=== PATIENT | male | born 1980 | race Caucasian/White ===

== ENCOUNTER → 2017-11-14 | Outpatient (CLI) | payer OTHER ==
[~2017-11-14] MED LIST: BUSP-8 PO; ONDA-63 PO; OXYC-57 PO
--- NOTE | 2017-11-14 12:21 | DIAGNOSTIC IMAGING REPORT ---
LUMBAR SPINE W/O CONTRAST HISTORY: Pain. Neuropathy. DISK HERNIATION,STENOSIS,WILL BE MEDICATED TECHNIQUE: Multiplanar multisequence MRI of the lumbar spine was performed without the use of contrast. COMPARISON: None. FINDINGS: For the purpose of the report the L5-S1 disc space will be located on axial image 27 of 30. Mild degenerative disc change throughout. Moderate degenerative disc changes noted L4-L5 and L5-S1. L1-L2: No significant central canal or neural foraminal narrowing. L2-L3: No significant central canal or neural foraminal narrowing. L3-L4: No significant central canal or neural foraminal narrowing. L4-L5: Right central posterior disc herniation. Significant impact anterior aspect thecal sac. Neuroforamina are patent bilaterally. L5-S1: Broad-based bulging disc. Contact with the S1 nerve roots is noted bilaterally but no significant deformity or displacement of those structures is seen. Neuroforamina are patent bilaterally. Moderate degenerative change posterior facets. IMPRESSION: 1. Right posterior disc herniation L4-L5 having a maximum dimensions of 7 x 10 mm. 2. Posterior bulging disc L4-L5 in contact with but showing no significant deformity or displacement of any significant neural element. The above report was generated using voice recognition software. It may contain grammatical, syntax or spelling errors. Electronically signed by: David Gabriel M.D. 11/14/2017 12:20 PM Dictated Date/Time: 11/14/2017 12:17 PM
== END | disposition home or self-care (01) ==
LOC: C.MRI 11:02
PROVIDERS: ATTEND Orthopaedic Surgery Orthopaedic Surgery of the Spine
DX: M51.26 Other intervertebral disc displacement, lumbar region (principal); M48.061 Spinal stenosis, lumbar region without neurogenic claudication

== ENCOUNTER 2018-04-09 05:42 | Inpatient (IN) | payer BC, OTHER ==
[2018-03-20 08:46] VITALS: BMI 24.0
[2018-03-20 09:27] LABS: BASO % 0.5 %; BASO ABS # 0.03 K/uL (0-0.2); EOS % 2.6 %; EOS ABS # 0.16 K/uL (0-0.5); HEMATOCRIT 41.3 % (42-52); HEMOGLOBIN 14.4 g/dL (14.0-18.0); IG# 0.01 K/uL (0.00-0.02); LYMPH % 27.6 %; LYMPH ABS # 1.71 K/uL (1.2-3.4); MEAN CELL VOLUME 88.8 fL (80-100); MEAN CORPUSCULAR HGB CONC 34.9 g/dl (32-36); MONO % 7.9 %; MONO ABS # 0.49 K/uL (0.11-0.59); NEUT % 61.2 %; PLATELET COUNT 217 K/uL (130-400); RED CELL DISTRIBUTION WIDTH CV 13.3 % (11.5-14.5); RED CELL DISTRIBUTION WIDTH SD 42.9 fL (36.4-46.3)
[2018-03-20 09:38] LABS: PTT PATIENT 26.4 SECONDS (21.0-31.0)
--- NOTE | 2018-03-20 09:40 | DIAGNOSTIC IMAGING REPORT ---
CHEST 2 VIEWS ROUTINE CLINICAL HISTORY: Preoperative chest COMPARISON STUDY: 05/07/2011 FINDINGS: The cardiac and mediastinal contours are normal. There is no evidence of focal pulmonary consolidation. There is no evidence of failure. No pleural effusions are visualized.[ There is a minor vertebral body wedge deformity at the thoracoabdominal junction, likely old. IMPRESSION: No active disease in the chest. Electronically signed by: Duarte Newton M.D. 03/20/2018 9:39 AM Dictated Date/Time: 03/20/2018 9:38 AM
[2018-03-20 10:55] LABS: CALCIUM 8.8 mg/dl (8.5-10.1); CREATININE 0.8 mg/dl (0.60-1.40); POTASSIUM 3.7 mmol/L (3.5-5.1)
--- NOTE | 2018-04-08 18:37 | HISTORY & PHYSICAL EXAMINATION ---
DATE OF ADMISSION: 04/09/2018 He is set up for 2 level posterior lumbar interbody fusion procedure at L4-L5 and L5-S1. HISTORY OF PRESENT ILLNESS: The patient is a pleasant gentleman. I have known him for years. His surgical workup has been ongoing now for about two years in duration, finally gaining approval. He has cauda equina compression, nerve root irritation, degenerative changes, all compatible with his subjectivity of pain. MEDICAL HISTORY: Negative for heart disease, diabetes, thyroid issues, cholesterol. No hypertension. SURGICAL HISTORY: Includes lumbar spine discectomy surgery in 2009. ALLERGIES: Negative. FAMILY HISTORY: Heart disease and diabetes. SOCIAL HISTORY: He is , works, two children. Moderately-active lifestyle. His pain curtails most of his activity. REVIEW OF SYSTEMS: He denies fevers, sweats, chills. Ear, nose and throat negative. No chest pain, palpitations, asthma, wheezing. No nausea, vomiting. No skin rashes. There is mostly numbness and tingling, which is neurological and musculoskeletal back pain. MEDICATIONS: Gabapentin, and Flexeril. PHYSICAL EXAMINATION: VITAL SIGNS: He is 6 foot, 170 pounds. Blood pressure on record 130/80, pulse 80. GENERAL: He is in moderate distress, conversant, slightly depressed. HEENT: Essentially normal. Specifically, Pupils reactive to light. ABDOMEN: Soft, nontender, no referred pain. No adenopathy. CARDIAC: Normal S1, S2. LUNGS: Clear. NEUROLOGIC: He has numbness and tingling in the lower extremities, paresthesias, particularly L5 nerve root. He has loss of flexion and extension. He has pain with percussion of the spine. He has slight gait abnormality, difficulty with upright positioning. X-rays demonstrate 2 level degenerative changes in lumbar spine. MRI scan demonstrates 2 level pathology lumbar spine 4-5, large disc herniation 4-5 and 5-S1. IMPRESSION: Delightful gentleman, 2 level lumbar spine pathology of significance. DISPOSITION: Includes a 2 level PLIF procedure L4-5 and, S1. Instructions precautions provided to the patient.
[~2018-04-09] VITALS: Ht 182.9 cm; Wt 82.3 kg
[2018-04-09] VITALS (8 sets, daily range): BP systolic 118–159; BP diastolic 62–97; PULSE 65–96; TEMP 36.4–37.3; O2SAT 96–99; Ht 182.9 cm; Wt 82.3 kg
[~2018-04-09 05:42] MED LIST changes: -BUSP-8 PO; +CYCL10TA6 PO; +DULO60CA44 PO; +MULT-1027 PO; +NAPR1TAB9 PO; -OXYC-57 PO; +OXYC-609 PO
[2018-04-09] MEDS ORDERED: NSS 1000ML IV SCH (06:00)
[2018-04-09] MEDS ORDERED: ACETAMINOPHEN 500 MG TAB PO SCH (06:00)
[2018-04-09] MEDS ORDERED: LACTATED RINGER'S 1000ML 1,000 ML IV SCH (06:00)
[2018-04-09] MEDS ORDERED: ACETAMINOPHEN 1000 MG/100 ML IV IV SCH (06:00)
[2018-04-09] MEDS ORDERED: CEFAZOLIN 2000MG IV PUSH 15 ML IV SCH ×2 (06:00→16:00)
[2018-04-09] MEDS ORDERED: MIDAZOLAM HCL 1 MG/ML 2ML VIAL ONE (06:41)
[2018-04-09] MEDS ORDERED: FENTANYL CITRATE INJ 50 MCG/1 ML 2 ML VIAL ONE ×4 (06:42→11:25)
[2018-04-09] MEDS ORDERED: PROPOFOL IV EMULSION 10 MG/ML 20 ML VIAL ONE (06:49)
[2018-04-09] MEDS ORDERED: ROCURONIUM BROMIDE 10 MG/ML 5 ML VIAL ONE (06:49)
[2018-04-09] MEDS ORDERED: ONDANSETRON INJ 2 MG/ML 2 ML VIAL ONE (06:49)
[2018-04-09] MEDS ORDERED: LIDOCAINE HCL 2% 2 ML VIAL (20MG/ML) ONE (06:49)
[2018-04-09] MEDS ORDERED: DEXAMETHASONE SOD INJ 4 MG/ML VIAL ONE (06:49)
[2018-04-09] MEDS ORDERED: BUPIVACAINE 0.5 % 5 MG/1 ML MPF 30ML VIAL ONE (06:56)
[2018-04-09] MEDS ORDERED: GELATIN SPONGE SZ 100 ONE ×2 (06:56→09:54)
[2018-04-09] MEDS ORDERED: BACITRACIN 50000 UNIT VIAL ONE (06:56)
[2018-04-09] MEDS ORDERED: VANCOMYCIN HCL 1000MG/20ML VIAL ONE (06:56)
[2018-04-09] MEDS ORDERED: THROMBIN FOR SOLN 20000 UNIT KIT ONE (06:56)
[2018-04-09] MEDS ORDERED: EpINEphrine INJ 1MG/ML AMP 1 MG/ML AMP ONE (06:57)
--- NOTE | 2018-04-09 07:33 | History & Physical Bridge Note ---
H&P Re-Evaluation Bridge Note: I have examined the patient, reviewed the History & Physical and in the interval since the performance of the History & Physical I have noted the following changes of clinical significance: No changes noted
[2018-04-09] MEDS ORDERED: HYDROmorphone INJ 2 MG/ML SYR/VIAL ONE (08:14)
[2018-04-09] MEDS ORDERED: NALOXONE HCL 0.4 MG/1 ML VIAL/CARP IV PRN ×2 (09:00→11:30)
[2018-04-09] MEDS ORDERED: LABETALOL HCL IV 5 MG/ML 20ML IV PRN (09:00)
[2018-04-09] MEDS ORDERED: FLUMAZENIL 0.1 MG/1 ML 10 ML VIAL IV PRN (09:00)
[2018-04-09] MEDS ORDERED: EpHEDrine SULFATE INJ 50 MG/ML AMP IV PRN (09:00)
[2018-04-09] MEDS ORDERED: PROMETHAZINE HCL INJ 12.5 MG in SODIUM CHLORIDE 0.9% 50ML 50 ML IV PRN ×2 (09:00→11:30)
[2018-04-09] MEDS ORDERED: ONDANSETRON INJ 2 MG/ML 2 ML VIAL IV PRN ×2 (09:00→11:30)
[2018-04-09] MEDS ORDERED: ATROPINE SULFATE 0.1 MG/ML 5ML SYR IV PRN (09:00)
[2018-04-09] MEDS ORDERED: HydrALAZINE HCL 20 MG/ML VIAL ONE (10:28)
[2018-04-09] MEDS ORDERED: FLOSEAL HEMOSTATIC MATRIX 10ML TOP ONE (10:54)
--- NOTE | 2018-04-09 10:56 | DIAGNOSTIC IMAGING REPORT ---
SPINE ONE VIEW, ANY LEVEL HISTORY: Fusion. FLUOROSCOPY TIME: 12 seconds. FINDINGS: Intraoperative fluoroscopy was provided for the lumbar laminectomy and fusion. 1 fluoroscopic spot images were obtained. IMPRESSION: Fluoroscopy provided for a lumbar laminectomy and fusion. The above report was generated using voice recognition software. It may contain grammatical, syntax or spelling errors. Electronically signed by: David Gabriel M.D. 04/09/2018 10:55 AM Dictated Date/Time: 04/09/2018 10:54 AM
[2018-04-09] MEDS ORDERED: NEOSTIGMINE METHYLSULFATE 1 MG/ML 10ML VIAL ONE (11:02)
[2018-04-09] MEDS ORDERED: GLYCOPYRROLATE INJ 0.2 MG/ML VIAL ONE (11:02)
--- NOTE | 2018-04-09 11:20 | [facility] Post Operative Brief Note ---
Immediate Operative Summary Operative Date April 09, 2018. Pre-Operative Diagnosis Stenosis and instability Post-Operative Diagnosis Stenosis and instability Procedure(s) Performed L4-S1 Decompression, Posterior Spinal Fusion, Instrumentation, Interbody Fusion With Application of Interbody Cage at L4-L5, L5-S1; Application of Allograft Surgeon Dr. John Godoy Food Service Aide Surgeon(s) Jerome Ace PA-C Estimated Blood Loss 200ml Findings Consistent with Post-Op Diagnosis Specimens None per surgeon Drains None Anesthesia Type General Disposition Accompanied Pt To Recover: no
[2018-04-09] MEDS ORDERED: SODIUM CHLORIDE 0.9% 1000ML 1,000 ML IV SCH (11:24)
[2018-04-09] MEDS ORDERED: METOCLOPRAMIDE HCL INJ 5 MG/ML 2 ML VIAL IV PRN (11:30)
[2018-04-09] MEDS ORDERED: LORAZEPAM INJ 1 MG in SYRINGE 0 ML IV PRN (11:30)
[2018-04-09] MEDS ORDERED: ACETAMINOPHEN 325 MG TAB PO PRN (11:30)
[2018-04-09] MEDS ORDERED: MAGNESIUM HYDROXIDE SUSP 30 ML UDC PO PRN (11:30)
[2018-04-09] MEDS ORDERED: ONDANSETRON 8 MG TAB PO PRN (11:30)
[2018-04-09] MEDS: HYDROmorphone INJ 2 MG/ML SYR/VIAL IV PRN ×4 (11:39→12:10)
[2018-04-09] MEDS ORDERED: HYDROmorphone HCL 0.5MG/ML 50 ML CASSETTE ONE (11:40)
[2018-04-09] MEDS ORDERED: LORAZEPAM 2 MG/ML 1 ML VIAL ONE (11:43)
[2018-04-09] MEDS ORDERED: LORAZEPAM INJ 1 MG in SYRINGE 0.5 ML IV PRN (12:00)
[2018-04-09 12:19] LABS: HEMATOCRIT 38.2 % (42-52); HEMOGLOBIN 13.5 g/dL (14.0-18.0)
--- NOTE | 2018-04-09 12:20 | Anesthesiology Progress Note ---
Anesthesia Post Op Note Date & Time April 09, 2018 at 12:20 Vital Signs Pain Intensity: 7 Vital Signs Past 12 Hours Date Time Temp Pulse Resp B/P (MAP) Pulse Ox O2 Delivery O2 Flow Rate FiO2 04/09/18 12:10 84 19 131/54 98 Oxymask 4 04/09/18 12:00 85 21 141/69 99 Oxymask 4 04/09/18 11:50 103 23 161/98 99 Oxymask 10 04/09/18 11:40 101 22 161/70 99 Oxymask 10 04/09/18 11:33 36.9 113 23 150/117 99 Oxymask 10 04/09/18 06:00 36.5 65 18 132/83 96 Room Air Notes Mental Status: alert / awake / arousable, participated in evaluation Pt Amnestic to Procedure: Yes Nausea / Vomiting: adequately controlled Pain: adequately controlled Airway Patency, RR, SpO2: stable & adequate BP & HR: stable & adequate Hydration State: stable & adequate Anesthetic Complications: no major complications apparent
--- NOTE | 2018-04-09 13:02 | OPERATIVE REPORT ---
DATE OF OPERATION: 04/09/2018 PREOPERATIVE DIAGNOSES: Two-level lumbar spine disease L4-5, L5-S1, combination of disc herniation, stenosis, degenerative changes, instability. POSTOPERATIVE DIAGNOSES: Same. PROCEDURE: . 1. Lumbar spine laminectomy L4-L5, L5-S1, foraminotomy, partial facetectomy. 2. Complete discectomy at L4-L5 and L5-S1. 3. Pedicle screw instrumentation, L4, L5 and S1. 4. Posterior lateral fusion, L4, L5, S1 and interbody fusions L4-L5 and L5-S1. SURGEON: John Godoy DO MEDICAL I D SALES: Jerome Ace PA-C. COMPLICATIONS: There were no complications. BLOOD LOSS: Controlled at 200 mL. DESCRIPTION OF PROCEDURE: The patient was taken to the operating room and general intubated anesthetic provided to patient, placed prone, shaved, scrubbed, prepped and draped sterile. We made a skin incision, fascial incision, put in a deep self-retaining retractor, I could get lateral to the facet joints from L4, L5 and S1. We then meticulously decompressed the canal. He had old surgery. There was scar tissue formation. We had to really decompress each and every nerve root which would be L4, L5 and S1 bilaterally. We then instrumented the spine, safely getting pedicle screws into L4, L5 and S1 bilaterally. We then were able to get interbody fusions done. We did a complete discectomy at L4-L5, complete discectomy at L5-S1. We packed the interspace with autograft. We put an interbody device from the [employer]. This was approximately 9 mm in height, 22 mm in length. This placed a nice anterior aspect of the disc interspace. We then bone grafted out the transverse processes. Prior to all this, we had irrigated with approximately 800 mL of fluid. We placed some vancomycin powder over the dural structures. We locked down the construct. We closed over Hemovac drain with 1 Vicryl, 2-0 and staple gun. Sterile dressings applied. The patient returned to recovery room satisfactory and stable. Again, no complications. Sponge and needle count correct. No complications. I attest to the content of the Intraoperative Record and any orders documented therein. Any exception s are noted below.
[2018-04-09] MEDS: SODIUM CHLORIDE 0.9% 1000ML 1,000 ML IV SCH (14:28)
[2018-04-09] MEDS: CEFAZOLIN IV 2,000 MG in SYRINGE 0 ML IV SCH ×2 (16:12→23:09)
[2018-04-09] MEDS: KETOROLAC TROMETHAMINE 30 MG/ML VIAL IV SCH ×2 (17:54→23:09)
[2018-04-09] MEDS: HYDROmorphone HCL 0.5MG/ML 50 ML CASSETTE IV PRN (18:59)
[2018-04-09] MEDS: DEXAMETHASONE INJ 8 MG in SYRINGE 0 ML IV SCH (19:29)
[2018-04-09] MEDS: DULOXETINE HCL 60 MG CAP PO SCH (20:33)
--- NOTE | 2018-04-09 21:50 | GENITOURINARY CONSULTATION ---
DATE OF CONSULTATION: 04/09/2018 REASON FOR THE CONSULT: Difficult Jose placement earlier in the day. HISTORY OF PRESENTATION: The patient is a 37-year-old male with no previous urologic history including no difficulty voiding. No hematuria, no knowledge of any meatal stenosis or urethral stricture who has no nocturia and no other urologic history. He was here for back surgery this morning and the back surgeons had difficulty placing a catheter. They consulted Dr. Arredondo who did place a coude catheter. There was some hematuria during the procedure and postoperatively, which seems to be clearing at this time and Dr. Arredondo recommended that the catheter be left in for 48 hours. The patient again has back pain and had back surgery today. PAST SURGICAL HISTORY: Significant for diskectomy in 2009. MEDICAL HISTORY: Negative for heart disease, diabetes, or hypertension. SOCIAL HISTORY: The patient is and has 2 children. MEDICATIONS: Include gabapentin and Flexeril. REVIEW OF SYSTEMS: Please refer to the history of review of systems. PHYSICAL EXAMINATION: The patient is lying in bed. We did not do a rectal or exam at this time. Extremities are unremarkable. HEENT is unremarkable. He is alert and oriented without any focal sensory deficits. No respiratory distress, no pedal edema. Abdomen is soft. A Jose catheter in place draining clear urine. ASSESSMENT: Difficult Jose apparently may have been some meatal stenosis but not clear. We will leave the catheter in. The patient's catheter may be removed after 48 hours. If he has great difficulty, it could be removed sooner, but would advise 48 hours to let the swelling come down, he may have difficulty voiding subsequent to this. We would consider having him follow up if he has any voiding difficulty subsequent to this, including decreased force of stream. No family history of prostate cancer. No reason to discuss any other workup at this time. It might be smart to have the patient followup with urology just to make sure we get a Uroflow assessment for infection and make sure that he understands what kind of things we will be looking for in the future, where he to have urinary difficulties. Thank you very much for allowing us to see this patient. ASHER
[2018-04-10] MEDS: DEXAMETHASONE INJ 8 MG in SYRINGE 0 ML IV SCH ×3 (02:19→19:07)
[2018-04-10] MEDS: LORAZEPAM 1 MG TAB PO PRN ×3 (02:19→20:51)
[2018-04-10] MEDS: SODIUM CHLORIDE 0.9% 1000ML 1,000 ML IV SCH (02:20)
[2018-04-10 03:55] VITALS: BP 137/79; PULSE 70; TEMP 36.6; O2SAT 98
[2018-04-10] MEDS: KETOROLAC TROMETHAMINE 30 MG/ML VIAL IV SCH ×3 (05:20→17:58)
[2018-04-10] MEDS ORDERED: BISACODYL 10 MG SUPP PR PRN (06:00)
[2018-04-10] MEDS ORDERED: BISACODYL 5 MG TABEC PO PRN (06:00)
[2018-04-10] MEDS: HYDROmorphone HCL 0.5MG/ML 50 ML CASSETTE IV PRN (06:54)
[2018-04-10 06:59] VITALS: BP 132/78; PULSE 107; TEMP 37.1; O2SAT 99
--- NOTE | 2018-04-10 07:48 | Anesthesiology Progress Note ---
Anesthesia Post Op Note Date & Time April 10, 2018 at 07:48 Vital Signs Pain Intensity: 5.0 Vital Signs Past 12 Hours Date Time Temp Pulse Resp B/P (MAP) Pulse Ox O2 Delivery O2 Flow Rate FiO2 04/10/18 06:59 37.1 107 20 132/78 (96) 99 Room Air 04/10/18 03:55 36.6 70 18 137/79 (98) 98 Room Air 04/09/18 23:05 37.3 70 16 146/79 (101) 98 Room Air Notes Mental Status: alert / awake / arousable, participated in evaluation Pt Amnestic to Procedure: Yes Nausea / Vomiting: adequately controlled Pain: adequately controlled Airway Patency, RR, SpO2: stable & adequate BP & HR: stable & adequate Hydration State: stable & adequate Anesthetic Complications: no major complications apparent
[2018-04-10] MEDS ORDERED: DC PCA SCH (08:00)
[2018-04-10] MEDS ORDERED: OXYCODONE/ACETAMINOPHEN 5-325 TAB PO PRN (08:00)
[2018-04-10] MEDS ORDERED: HYDROmorphone INJ 0.5 MG/0.5 ML SYR IV PRN ×2 (08:00)
[2018-04-10] MEDS: CEFAZOLIN IV 2,000 MG in SYRINGE 0 ML IV SCH (08:57)
[2018-04-10] MEDS: POLYETHYLENE (MIRALAX) 17 GM PACK PO SCH (08:57)
[2018-04-10] MEDS: MULTIVITAMIN TAB PO SCH (08:58)
--- NOTE | 2018-04-10 09:09 | Progress Note ---
Progress Note Date of Service April 09, 2018. Progress Note Intraoperative consult for difficult naranjo placement. Attempt to place 16, 14, and 12 Fr catheter placed. Catheter necessary for procedure. Patient was prepped and draped in standard sterile fashion. Consent for catheter was take as an integral part of the total procedure. Patient was fully anesthetized and sedated with general endotracheal intubation. The 12 Fr catheter was removed after the balloon was lowered. A 18 Fr coude was attempted to be placed. The patient was found to have significant stenosis of the meatus which hindered placement. Passive dilation was completed with the catheter. The catheter was advanced to the bulbar urethra and with minimal manipulation, the catheter was able to be advanced and clear urine received. The balloon was elevated and the catheter seated. The area was cleaned. The naranjo was set to gravity drainage to a urometer for measuring of output. The patient tolerated this difficult catheter placement well without complications. His care was transferred to the attending surgeon to complete their operative procedure. Plan to maintain catheter for approx 48 hours and intervene if any further issues. Monitor for hematuria or bleeding at meatus. Patient had stenosis of meatus which made catheter placement difficult.
[2018-04-10 10:40] VITALS: BP 125/75; PULSE 71; TEMP 36.6; O2SAT 100
[2018-04-10] MEDS: OXYCODONE/ACETAMINOPHEN 5-325 TAB PO PRN ×4 (10:46→23:40)
[2018-04-10] MEDS ORDERED: NURSING VERBAL MED ORDER ONE ×2 (12:30→23:45)
[2018-04-10 15:14] VITALS: BP 132/74; PULSE 71; TEMP 36.9; O2SAT 98
--- NOTE | 2018-04-10 19:10 | Progress Note ---
Subjective Date of Service: April 10, 2018. Subjective Pt evaluation today including: conversation w/ patient, conversation w/ family , physical exam, chart review, lab review, review of inpatient medication list Pain: Discomfort with naranjo PO Intake: Ryan PO Voiding: naranjo catheter in place 37 yo male s/p difficult naranjo placement due to apparent meatal stenosis in OR. Intraop consult and events noted. Patient in bed, family in room. He c/o bother at the naranjo site, little OOB yet, ryan PO, some bleeding around naranjo. He denies previous LUTS, UTI, trauma or surgery. Review of Systems Constitutional: No fever, No chills ENT: No hearing loss Respiratory: No sputum Cardiac: No chest pain Abdomen: No nausea, No vomiting Male : + see HPI Neurologic: No memory loss Psychiatric: No anxiety Endo: No excessive thirst Skin: No new/changing skin lesions Objective Vital Signs Date Time Temp Pulse Resp B/P (MAP) Pulse Ox O2 Delivery O2 Flow Rate FiO2 04/10/18 16:15 Room Air 04/10/18 15:14 36.9 71 18 132/74 (93) 98 Room Air 04/10/18 10:40 36.6 71 19 125/75 (92) 100 Room Air 04/10/18 07:55 Room Air 04/10/18 06:59 37.1 107 20 132/78 (96) 99 Room Air 04/10/18 03:55 36.6 70 18 137/79 (98) 98 Room Air 04/09/18 23:05 37.3 70 16 146/79 (101) 98 Room Air 04/09/18 19:31 36.7 82 18 118/62 (80) 97 Room Air 04/09/18 19:30 Room Air Physical Exam General Appearance: WD/WN, no apparent distress Eyes: normal inspection ENT: normal ENT inspection, hearing grossly normal Neck: supple, no adenopathy Respiratory/Chest: no respiratory distress, no accessory muscle use Cardiovascular: no JVD Abdomen: non tender, soft Extremities: non-tender Neurologic/Psychiatric: alert, oriented x 3 Skin: normal color Assessment and Plan A/P 37 yo male s/p difficult naranjo, meatal stenosis. Trial of void tomorrow as noted. Will arrange for outpatient follow-up with our service to check on voiding. Possible etiologies of meatal stenosis / scarring and risk of recurrence and voiding issues is discussed. Patient and family vocalize good understanding of the treatment plan.
[2018-04-10] MEDS: DULOXETINE HCL 60 MG CAP PO SCH (20:51)
[2018-04-10 22:42] VITALS: BP 133/80; PULSE 96; TEMP 36.8; O2SAT 98
[2018-04-10] MEDS ORDERED: SODIUM CHLORIDE 0.9% 1000ML 1,000 ML IV PRN ×2 (23:45)
[2018-04-11] MEDS: DEXAMETHASONE INJ 8 MG in SYRINGE 0 ML IV SCH ×2 (02:47→10:44)
[2018-04-11] MEDS: LORAZEPAM 1 MG TAB PO PRN ×2 (04:33→10:47)
[2018-04-11] MEDS: OXYCODONE/ACETAMINOPHEN 5-325 TAB PO PRN ×3 (04:34→12:27)
[2018-04-11] MEDS ORDERED: OXYC-106 PO (07:33)
[2018-04-11] MEDS ORDERED: DIAZ-165 PO (07:34)
[2018-04-11] MEDS ORDERED: PRED20TA2 PO (07:36)
--- NOTE | 2018-04-11 07:39 | Discharge Instructions ---
Discharge Instructions Date of Service April 11, 2018. Admission Reason for Admission: Lumbar Disc Degeneration, Lumbar Stenosis Discharge Discharge Diagnosis / Problem: same Discharge Goals Goal(s): Improve function Activity Recommendations Activity Limitations: as noted below Lifting Limitations: until after follow-up appointment Exercise/Sports Limitations: until after follow-up appointment Shower/Bathe: keep incision dry Driving or Machine Use: HOME, REST, RECOVER, USE WALKER . Instructions / Follow-Up Instructions / Follow-Up MEDICATIONS: Please take your prescriptions as instructed at your pre-op appointment. SPECIAL CARE: The following information is intended to answer some of the common questions and concerns regarding your surgery. Each patient is an individual and receives individual counselling throughout the course of treatment, from diagnosis to surgery all the way through recovery. What follows is not an exhaustive list, but should be a useful guide to some of the common questions and concerns patients have regarding their surgeries. These are not provided to keep you from calling us; rather, they give you something accurate and concrete to reference as you recover from your procedure. If you need us, we are available to you. As always, if you are not sure about something, call us at [phone]. MEDICAL EMERGENCIES: For these conditions, call 911 or go to your local hospital-based Emergency Department - not [facility] or equivalent. * Paralysis * Severe chest pain or difficulty breathing * Swelling or redness of either leg Spine procedures can be rather complex and though complications are rare, they do occur. In such cases, effective advice regarding emergency situations cannot always be addressed over the telephone. You may be referred to the emergency department for more effective management of your problem. Activity Limitations: It is important to give your body time to heal, so please limit your activities : * In general, don't do anything that moves your spine too much. You should avoid contact sports, twisting or heavy lifting while you recover. * 5-10 pounds is all you should attempt to lift. * You should not plan on driving for approximately 3 weeks and you should avoid traveling more than 30-45 minutes at a time. Longer trips should be broken down with walking breaks spaced appropriately. * Physical therapy is not usually required. * Walking and good posture practices will help you recover and regain your function. * Avoid straining or sudden changes in position. * In general, the goal is to take it easy and recover. Don't cause any new problems. Just relax. Showers: * Do not take a bath, use a Jacuzzi or hot tub or otherwise submerge your incision. * It is usually safe to take a shower 4-5 days after your surgery. * Your incision does not require any special creams or ointments. * Simply clean it with soap and water, dry and re-dress with a clean bandage afterwards. Incision: * Keep incision clean, dry and protected until your first follow-up appointment. * Some amount of drainage and redness is normal. Any drainage should be fairly clear and not have a foul odor. * If you feel anything is wrong or you have excessive drainage, please call us. * Your stitches and pretty will be removed 10-14 days after your surgery. At the time of your first post-op visit. * Neck surgeries are typically closed with a suture underneath the skin. The steri-strips over the incision should be maintained until we see you in the office. Bracing: * You may be provided with a back or neck brace to encourage good posture and prevent injury. It will remind you not to do too much as you heal and will alert others to the fact that you have had a surgery. * Back braces may be removed for showers and when you are resting at home. They must be worn when you are walking around for any period of time or for travel. * For neck surgery, you will likely be provided with two cervical collars. The soft collar ([place] or foam rubber) is worn most commonly throughout the day and while sleeping. The plastic collar (provided at the hospital) is for showering/bathing. * Except while eating, collars should remain in place. More specifically, bracing is provided for a purpose and should be worn. * Please obtain your brace or collars prior to your operation and bring them to the hospital with you on the day of surgery. * You should also bring your collars to your post-op appointment with Dr. Godoy. You should always take good care of your body and practice healthy habits, especially following surgery. You should: * Follow your doctor's treatment plan * Sit and stand properly with good posture (ears over shoulders, shoulders over hips) Don't slouch * Learn to lift correctly * Exercise regularly (low-impact aerobic exercise is especially good, but check with your doctor first) * Generally, be up and walking for 5-10 minutes at a time at least 3-4 times per day from the day you get home * Increasing walking to tolerance until you can walk for 20-30 minutes at a time * Attain and maintain a healthy body weight * Eat healthy foods ( a well-balanced, low-fat diet rich in fruits and vegetables) and get enough calcium * Avoid excessive use of alcohol When to call our office - If you notice any of the following: * Increased pain not relieve by pain medicine * Fevers greater then 100 degrees F, chills or flu symptoms * Increased redness around incision * Drainage from the incision that is not clear * Any foul smelling drainage * Swelling or fluid collection beneath the skin Miscellaneous: * In the hospital, you may be given a walker or cane for support while walking. These are temporary needs and are intended to prevent injuries due to falls. You may discontinue them when you feel strong and steady enough on your feet. * Sleep in a comfortable position. We find that many patients find a lounge chair or recliner with several pillows to be beneficial in the early post-operative period. * The support stockings should be used for 7-10 days and may be discontinued when you are back to walking more and conducting usual household activities. No problem is insignificant. We are here to help you and get you well. Contact us at [phone]. Definitions: Foraminotomy: If part of the disc or a bone spur (osteophyte) is pressing on a nerve as it leaves the vertebra (through an exit called the foramen), a foraminotomy may be done. Otomy means "to make an opening." A foraminotomy is making the opening of the foramen larger, so the nerve can exit without being compressed. Laminotomy: Similar to the foraminotomy, a laminotomy makes a larger opening, this time in your bony plate protecting your spinal canal and spinal cord (the lamina). The lamina may be pressing on your nerve, so the surgeon may make more room for the nerves using a laminotomy. Laminectomy: Sometimes, a laminotomy is not sufficient. The surgeon may need to remove all or part of the lamina. This procedure is called a laminectomy. This can often be done at many levels without any harmful effects. Current Hospital Diet Patient's current hospital diet: Regular Diet Discharge Diet Recommended Diet: Regular Diet Procedures Procedures Performed: L4-S1 Decompression, Posterior Spinal Fusion, Instrumentation, Interbody Fusion With Application of Interbody Cage at L4-L5, L5-S1; Application of Allograft Pending Studies Studies pending at discharge: no Medical Emergencies . Who to Call and When: Medical Emergencies: If at any time you feel your situation is an emergency, please call 911 immediately. . Non-Emergent Contact Non-Emergency issues call your: Primary Care Provider . "Provider Documentation" section prepared by John Godoy. .
[2018-04-11 07:43] VITALS: BP 151/81; PULSE 84; TEMP 36.4; O2SAT 97
[2018-04-11] MEDS: MULTIVITAMIN TAB PO SCH (08:14)
[2018-04-11] MEDS: POLYETHYLENE (MIRALAX) 17 GM PACK PO SCH (08:16)
--- NOTE | 2018-04-11 10:12 | Progress Note ---
Subjective Date of Service: April 11, 2018. Subjective Pt evaluation today including: conversation w/ patient, physical exam, chart review, lab review, review of inpatient medication list Pain: pain improved after naranjo removal PO Intake: Bucky PO 37 yo male s/p difficult naranjo placement, meatal stenosis. Naranjo out this AM, improved penile discomfort. He denies chronic voiding symptoms, no current bleeding. Pending more activity this AM. He has not voided yet, no desire to void as of yet since naranjo out. Review of Systems Constitutional: No fever, No chills Eyes: No worsening of vision ENT: No unusual epistaxis Respiratory: No shortness of breath Cardiac: No chest pain Abdomen: No nausea, No vomiting Male : + see HPI Neurologic: No memory loss Psychiatric: No depression symptoms Skin: No rash, No itch Objective Vital Signs Date Time Temp Pulse Resp B/P (MAP) Pulse Ox O2 Delivery O2 Flow Rate FiO2 04/11/18 07:43 36.4 84 16 151/81 (104) 97 Room Air 04/11/18 00:15 Room Air 04/10/18 22:42 36.8 96 20 133/80 (97) 98 Room Air 04/10/18 16:15 Room Air 04/10/18 15:14 36.9 71 18 132/74 (93) 98 Room Air 04/10/18 10:40 36.6 71 19 125/75 (92) 100 Room Air Physical Exam General Appearance: WD/WN, no apparent distress ENT: hearing grossly normal Neck: supple, no adenopathy Respiratory/Chest: no respiratory distress, no accessory muscle use Cardiovascular: no JVD Abdomen: non tender, soft Neurologic/Psychiatric: alert Skin: normal color Assessment and Plan A/P 37 yo male s/p difficult naranjo, meatal stenosis. Monitor voiding, ensure he is able to void prior to DC home. Will arrange for outpatient f/u of bladder emptying. Contact info provided. Thank you for allowing us to participate in this patient's care. Please recall our service PRN any new questions or concerns.
[2018-04-11 10:51] VITALS: BP 151/81; PULSE 84; TEMP 36.4; O2SAT 97
--- NOTE | 2018-04-11 14:16 | DISCHARGE SUMMARY ---
SUBJECTIVE: He is alert, oriented. No chest pain, shortness of breath. Does have some lower extremity difficulty, spasticity roughly in the 3, 4, 5 nerve root vicinity. He has no weakness, but he does have numbness, it is more of a cramping pain. OBJECTIVE: VITAL SIGNS: Vital signs stable, alert, oriented. Pulse rate 80 beats per minute, afebrile. MUSCULOSKELETAL: No pain with straight leg raising or tension sign to the lower extremities bilaterally. No upper motor neuron issues. ASSESSMENT: Status post lumbar spine, major reconstructive surgery. PLAN: We will try to get him home today. He has prescriptions on his chart. He has instructions and precautions. He has a followup appointment. He has a walker at home and we will see him back in the office in approximately 10 days.
== END 2018-04-11 12:46 | disposition home or self-care (01) | DRG 454 ==
LOC: C.ACU 05:42 → C.3E 06:30 → ENRESERV 12:16
PROVIDERS: ADMIT Orthopaedic Surgery Orthopaedic Surgery of the Spine; ATTEND Orthopaedic Surgery Orthopaedic Surgery of the Spine
PROC: 0ST40ZZ Resection of Lumbosacral Disc, Open Approach (ICD-10-PCS; principal; 2018-04-09 07:30)
PROC: 0SG00AJ Fusion of Lumbar Vertebral Joint with Interbody Fusion Device, Posterior Approach, Anterior Column, Open Approach (ICD-10-PCS; principal; 2018-04-09 07:30)
PROC: 0SG30AJ Fusion of Lumbosacral Joint with Interbody Fusion Device, Posterior Approach, Anterior Column, Open Approach (ICD-10-PCS; principal; 2018-04-09 07:30)
PROC: 0SG3071 Fusion of Lumbosacral Joint with Autologous Tissue Substitute, Posterior Approach, Posterior Column, Open Approach (ICD-10-PCS; principal; 2018-04-09 07:30)
PROC: 0SG0071 Fusion of Lumbar Vertebral Joint with Autologous Tissue Substitute, Posterior Approach, Posterior Column, Open Approach (ICD-10-PCS; principal; 2018-04-09 07:30)
PROC: 0ST20ZZ Resection of Lumbar Vertebral Disc, Open Approach (ICD-10-PCS; principal; 2018-04-09 07:30)
DX: M48.07 Spinal stenosis, lumbosacral region (principal); G83.4 Cauda equina syndrome; M51.27 Other intervertebral disc displacement, lumbosacral region; N35.9 Urethral stricture, unspecified

== ENCOUNTER 2018-04-20 09:41 | Inpatient (IN) | payer BC, OTHER ==
--- NOTE | 2018-04-17 15:09 | HISTORY & PHYSICAL EXAMINATION ---
DATE OF ADMISSION: 04/09/2018 ADDENDUM CHIEF COMPLAINT: Back and lower extremity difficulty. Paresthesias, numbness, tingling to the right lower extremity. HISTORY OF PRESENT ILLNESS: Que is delightful. We did fairly elaborate surgery on him 10 days ago. He has developed some right lower extremity difficulty, paresthesias, numbness, tingling, weakness. The pain has become out of control. We have imaged him. He has a mal-placed screw at the L5 vertebra which in my opinion is into his psoas musculature injuring the nerve root. PHYSICAL EXAMINATION: VITAL SIGNS: Blood pressure 130/80, pulse 80, respiration rate 16. HEENT: Normal. SKIN: Wound clean and dry. No drainage, no signs of infection. IMAGING: Images reviewed. IMPRESSION: Mal-placement of a screw in lumbar spine, possible fall leading to mal-placement of the screw, but I think on looking at the radiographs, it needs to be redirected. PLAN: Under general anesthetic, we will re-direct the screw at L5 lumbar spine, possibly leaving all the other implants in place. At the time of this dictation, I believe I will hold off on reimplantation of the screw. Note: He is doing well from the back pain perspective and has more stability.
[2018-04-20] VITALS (8 sets, daily range): BP systolic 118–157; BP diastolic 67–98; PULSE 68–90; TEMP 36.4–37; O2SAT 95–100; Ht 182.9 cm; Wt 79.5 kg
[~2018-04-20] VITALS: Ht 182.9 cm; Wt 79.5 kg
[~2018-04-20 09:41] MED LIST changes: +CEFAZOLIN 2000MG IV PUSH 15 ML IV SCH; +DIAZ-165 PO; +LACTATED RINGER'S 1000ML 1,000 ML IV SCH; +NSS 1000ML IV SCH; +OXYC-106 PO; +PRED20TA2 PO
[2018-04-20] MEDS ORDERED: HYDR2TAB48 PO (10:12)
[2018-04-20] MEDS ORDERED: HYDROmorphone INJ 0.5 MG/0.5 ML SYR IV PRN (12:00)
[2018-04-20] MEDS ORDERED: EpHEDrine SULFATE INJ 50 MG/ML AMP IV PRN (12:00)
[2018-04-20] MEDS ORDERED: NALOXONE HCL 0.4 MG/1 ML VIAL/CARP IV PRN ×2 (12:00→16:15)
[2018-04-20] MEDS ORDERED: ATROPINE SULFATE 0.1 MG/ML 5ML SYR IV PRN (12:00)
[2018-04-20] MEDS ORDERED: FLUMAZENIL 0.1 MG/1 ML 10 ML VIAL IV PRN (12:00)
[2018-04-20] MEDS ORDERED: PROMETHAZINE HCL INJ 12.5 MG in SODIUM CHLORIDE 0.9% 50ML 50 ML IV PRN ×2 (12:00→16:15)
[2018-04-20] MEDS ORDERED: LABETALOL HCL IV 5 MG/ML 20ML IV PRN (12:00)
[2018-04-20] MEDS ORDERED: ONDANSETRON INJ 2 MG/ML 2 ML VIAL IV PRN ×2 (12:00→16:15)
[2018-04-20] MEDS ORDERED: NURSING VERBAL MED ORDER ONE (12:15)
[2018-04-20] MEDS ORDERED: DIAZEPAM 5MG TAB ONE (12:19)
[2018-04-20] MEDS ORDERED: THROMBIN FOR SOLN 20000 UNIT KIT ONE (13:57)
[2018-04-20] MEDS ORDERED: GELATIN SPONGE SZ 100 ONE ×2 (13:57→15:39)
[2018-04-20] MEDS ORDERED: BACITRACIN 50000 UNIT VIAL ONE (13:57)
[2018-04-20] MEDS ORDERED: VANCOMYCIN HCL 1000MG/20ML VIAL ONE (13:57)
[2018-04-20] MEDS ORDERED: EpINEphrine INJ 1MG/ML AMP 1 MG/ML AMP ONE (13:58)
[2018-04-20] MEDS ORDERED: BUPIVACAINE 0.5 % 5 MG/1 ML PF 10ML VIAL ONE ×2 (13:58→14:21)
[2018-04-20] MEDS ORDERED: ONDANSETRON INJ 2 MG/ML 2 ML VIAL ONE (14:10)
[2018-04-20] MEDS ORDERED: LIDOCAINE HCL 2% 2 ML VIAL (20MG/ML) ONE (14:10)
[2018-04-20] MEDS ORDERED: DEXAMETHASONE SOD INJ 4 MG/ML VIAL ONE (14:10)
[2018-04-20] MEDS ORDERED: ROCURONIUM BROMIDE 10 MG/ML 5 ML VIAL ONE ×2 (14:10→15:00)
[2018-04-20] MEDS ORDERED: MIDAZOLAM HCL 1 MG/ML 2ML VIAL ONE (14:10)
[2018-04-20] MEDS ORDERED: NEOSTIGMINE METHYLSULFATE 5 MG/5 ML SYR ONE (14:10)
[2018-04-20] MEDS ORDERED: GLYCOPYRROLATE INJ 0.2 MG/ML VIAL ONE (14:10)
[2018-04-20] MEDS ORDERED: PROPOFOL IV EMULSION 10 MG/ML 20 ML VIAL ONE ×2 (14:10→15:45)
[2018-04-20] MEDS ORDERED: FENTANYL CITRATE INJ 50 MCG/1 ML 2 ML VIAL ONE (14:11)
[2018-04-20] MEDS ORDERED: HYDROmorphone INJ 2 MG/ML SYR/VIAL ONE (15:33)
--- NOTE | 2018-04-20 15:49 | DIAGNOSTIC IMAGING REPORT ---
SPINE ONE VIEW, ANY LEVEL CLINICAL HISTORY: Hardware removal. Revision. COMPARISON STUDY: Lumbar spine radiograph April 17, 2018. FLUOROSCOPY TIME: 6.4 seconds. FINDINGS: Single lateral fluoroscopic image demonstrates an L4-L5 and L5-S1 discectomies with interbody spacer placement. There are pedicle screws at the L4, L5 and S1 levels. IMPRESSION: Fluoroscopic images demonstrating L4-L5 and L5-S1 discectomies and pedicle screw fusion. Electronically signed by: Benito Jurado M.D. 04/20/2018 3:48 PM Dictated Date/Time: 04/20/2018 3:47 PM
[2018-04-20] MEDS ORDERED: SODIUM CHLORIDE 0.9% 1000ML 1,000 ML IV SCH (16:08)
--- NOTE | 2018-04-20 16:11 | [facility] Post Operative Brief Note ---
Immediate Operative Summary Operative Date April 20, 2018. Pre-Operative Diagnosis painful spinal implants Post-Operative Diagnosis painful spinal implants Procedure(s) Performed removal and adjustment spinal implants; bone graft and fusion Surgeon samantha Shooter'S Helper Surgeon(s) ora Estimated Blood Loss 150 Findings Consistent with Post-Op Diagnosis Specimens pedicle screws Drains None Anesthesia Type General Disposition Accompanied Pt To Recover: yes Overlapping Procedure I was immediately available: during the entire case
[2018-04-20] MEDS ORDERED: MAGNESIUM HYDROXIDE SUSP 30 ML UDC PO PRN (16:15)
[2018-04-20] MEDS ORDERED: ACETAMINOPHEN 325 MG TAB PO PRN (16:15)
[2018-04-20] MEDS ORDERED: METOCLOPRAMIDE HCL INJ 5 MG/ML 2 ML VIAL IV PRN (16:15)
[2018-04-20] MEDS ORDERED: LORAZEPAM INJ 1 MG in SYRINGE 0 ML IV PRN (16:15)
[2018-04-20] MEDS ORDERED: ONDANSETRON 8 MG TAB PO PRN (16:15)
[2018-04-20] MEDS ORDERED: CEFAZOLIN IV 1,000 MG in DEXTROSE 5% 50ML 50 ML IV SCH (16:15)
[2018-04-20] MEDS ORDERED: DC PCA PRN (16:15)
[2018-04-20] MEDS ORDERED: HYDROmorphone HCL 0.5MG/ML 50 ML CASSETTE ONE (16:23)
--- NOTE | 2018-04-20 17:00 | Anesthesiology Progress Note ---
Anesthesia Post Op Note Date & Time April 20, 2018 at 17:00 Vital Signs Pain Intensity: 5 Vital Signs Past 12 Hours Date Time Temp Pulse Resp B/P (MAP) Pulse Ox O2 Delivery O2 Flow Rate FiO2 04/20/18 16:55 36.4 85 16 155/87 100 Nasal Cannula 3 04/20/18 16:45 75 16 156/85 100 Nasal Cannula 3 04/20/18 16:35 76 16 149/87 99 Nasal Cannula 3 04/20/18 16:25 74 16 151/93 100 Oxymask 5 04/20/18 16:17 36.7 82 16 144/89 100 Oxymask 5 04/20/18 10:15 37 90 20 157/98 98 Room Air Notes Mental Status: alert / awake / arousable, participated in evaluation Pt Amnestic to Procedure: Yes Nausea / Vomiting: adequately controlled Pain: adequately controlled Airway Patency, RR, SpO2: stable & adequate BP & HR: stable & adequate Hydration State: stable & adequate Anesthetic Complications: no major complications apparent
[2018-04-20 18:15] LABS: HEMATOCRIT 31.9 % (42-52); HEMOGLOBIN 11.1 g/dL (14.0-18.0)
--- NOTE | 2018-04-20 19:37 | OPERATIVE REPORT ---
DATE OF OPERATION: 04/20/2018 PREOPERATIVE DIAGNOSIS: Mal-placed hardware and hardware cut out, lumbar spine L5 and S1. POSTOPERATIVE DIAGNOSIS: Same. PROCEDURES: Included 1. Decompression laminectomy of the L5 and S1 nerve roots, foraminotomy, and partial facetectomy. 2. Removal of painful implants at L5 and S1. 3. Readjustment of the S1 pedicle screw. 4. Bone grafting with Infuse out over the transverse processes of L4, L5, and S1 bilaterally. SURGEON: John Godoy DO. DEPUTY PROBATION OFFICER: Jerome Ace PA-C. COMPLICATIONS: There were no complications. BLOOD LOSS: 150 mL. DESCRIPTION OF PROCEDURE: The patient was taken to the operating room. A general intubated anesthetic provided to the patient, placed prone, scrubbed, prepped, and draped sterile. We used his old incision, made a skin incision, fascial incision, irrigated thoroughly, putting a deep self-retaining retractor. We were able to remove the screw caps on the affected right hand side leaving the left side intact. I was pleased to see how loose the L5 pedicle screw was, that made for a fairly easy distraction. The S1 pedicle screw had also cut out to the right hand side as well. I say cut out, it either was mal-placed or shifted at some point in time. After we had complete removal of the implants, we decompressed the neural elements thoroughly. We then re-instrumented the spine safely getting a pedicle screw into S1. We did not try to put another pedicle screw in at L5 I met from his first surgery, it was fairly weak. We connected the constructs. We irrigated thoroughly again with about 500 mL of fluid. We put Gelfoam over the dural structures. We put Infuse out over the transverse processes, L4, L5, and S1 two-level fusion. We closed over Hemovac drain and vancomycin powder with #1 Vicryl suture, 2-0 and 3-0 nylon. Sterile dressings applied. The patient returned to PACU stable. No complications. Sponge and needle counts correct. I attest to the content of the Intraoperative Record and any orders documented therein. Any exception s are noted below.
[2018-04-20] MEDS: CYCLOBENZAPRINE HCL 10 MG TAB PO SCH (20:20)
[2018-04-20] MEDS: DEXAMETHASONE INJ 10 MG in SYRINGE 0 ML IV SCH (20:20)
[2018-04-20] MEDS: DULOXETINE HCL 60 MG CAP PO SCH (20:20)
[2018-04-20] MEDS: LORAZEPAM 1 MG TAB PO PRN (20:25)
[2018-04-20] MEDS: SODIUM CHLORIDE 0.9% 1000ML 1,000 ML IV SCH (20:26)
[2018-04-20] MEDS: CEFAZOLIN IV 1,000 MG in SYRINGE 0 ML IV SCH (22:24)
[2018-04-20] MEDS: HYDROmorphone HCL 0.5MG/ML 50 ML CASSETTE IV PRN (23:00)
[2018-04-21 03:10] VITALS: BP 143/74; PULSE 80; TEMP 36.6; O2SAT 98
[2018-04-21] MEDS: DEXAMETHASONE INJ 10 MG in SYRINGE 0 ML IV SCH ×3 (03:37→19:32)
[2018-04-21] MEDS: LORAZEPAM 1 MG TAB PO PRN ×3 (03:41→18:00)
[2018-04-21] MEDS ORDERED: BISACODYL 10 MG SUPP PR PRN (06:00)
[2018-04-21] MEDS ORDERED: BISACODYL 5 MG TABEC PO PRN (06:00)
[2018-04-21] MEDS: CEFAZOLIN IV 1,000 MG in SYRINGE 0 ML IV SCH ×2 (06:02→13:50)
[2018-04-21] MEDS: SODIUM CHLORIDE 0.9% 1000ML 1,000 ML IV SCH (06:03)
[2018-04-21] MEDS: HYDROmorphone HCL 0.5MG/ML 50 ML CASSETTE IV PRN (07:11)
[2018-04-21 07:32] VITALS: BP 135/79; PULSE 72; TEMP 36.5; O2SAT 98
--- NOTE | 2018-04-21 07:35 | Anesthesiology Progress Note ---
Anesthesia Post Op Note Date & Time April 21, 2018 at 07:34 Vital Signs Pain Intensity: 6.0 Vital Signs Past 12 Hours Date Time Temp Pulse Resp B/P (MAP) Pulse Ox O2 Delivery O2 Flow Rate FiO2 04/21/18 07:32 36.5 72 16 135/79 (97) 98 Room Air 04/21/18 03:10 36.6 80 16 143/74 (97) 98 Room Air 04/20/18 23:43 97 Room Air 04/20/18 23:20 36.6 71 16 118/67 (84) 97 Room Air 04/20/18 20:33 36.9 81 16 122/71 (88) 96 Room Air Notes Mental Status: alert / awake / arousable, participated in evaluation Pt Amnestic to Procedure: Yes Nausea / Vomiting: adequately controlled Pain: adequately controlled Airway Patency, RR, SpO2: stable & adequate BP & HR: stable & adequate Hydration State: stable & adequate Anesthetic Complications: no major complications apparent
[2018-04-21] MEDS ORDERED: OXYCODONE/ACETAMINOPHEN 5-325 TAB PO PRN (08:00)
[2018-04-21] MEDS ORDERED: HYDROmorphone INJ 0.5 MG/0.5 ML SYR IV PRN (08:00)
[2018-04-21] MEDS: POLYETHYLENE (MIRALAX) 17 GM PACK PO SCH (08:40)
[2018-04-21] MEDS: MULTIVITAMIN TAB PO SCH (08:40)
[2018-04-21] MEDS: OXYCODONE/ACETAMINOPHEN 5-325 TAB PO PRN ×3 (08:40→18:02)
[2018-04-21 09:56] VITALS: BP 143/84; PULSE 89; O2SAT 97
[2018-04-21] MEDS: HYDROmorphone INJ 0.5 MG/0.5 ML SYR IV PRN ×3 (11:18→19:32)
[2018-04-21 12:12] VITALS: BP 123/72; PULSE 75; TEMP 37.3; O2SAT 97
[2018-04-21 15:04] VITALS: BP 144/78; PULSE 92; TEMP 36.5; O2SAT 98
[2018-04-21] MEDS ORDERED: NURSING VERBAL MED ORDER ONE (16:15)
[2018-04-21] MEDS: CYCLOBENZAPRINE HCL 10 MG TAB PO SCH (21:00)
[2018-04-21] MEDS: DULOXETINE HCL 60 MG CAP PO SCH (21:20)
[2018-04-21 22:35] VITALS: BP 100/72; PULSE 66; TEMP 36.5; O2SAT 99
[2018-04-22] MEDS: DEXAMETHASONE INJ 10 MG in SYRINGE 0 ML IV SCH (04:18)
[2018-04-22] MEDS: OXYCODONE/ACETAMINOPHEN 5-325 TAB PO PRN ×2 (04:23→08:47)
[2018-04-22 07:17] VITALS: BP 142/87; PULSE 78; TEMP 36.6; O2SAT 98
[2018-04-22] MEDS: POLYETHYLENE (MIRALAX) 17 GM PACK PO SCH (07:52)
[2018-04-22] MEDS: MULTIVITAMIN TAB PO SCH (07:55)
[2018-04-22] MEDS: LORAZEPAM 1 MG TAB PO PRN (07:55)
[2018-04-22] MEDS ORDERED: OXYC-106 PO (08:54)
[2018-04-22] MEDS ORDERED: ATV/1 PO (08:55)
--- NOTE | 2018-04-22 08:57 | Discharge Instructions ---
Discharge Instructions Date of Service April 22, 2018. Admission Reason for Admission: Painful Hardware L4-L5 Discharge Discharge Diagnosis / Problem: same Discharge Goals Goal(s): Improve function Activity Recommendations Activity Limitations: as noted below Lifting Limitations: no more than 5 pounds Exercise/Sports Limitations: until after follow-up appointment May Resume Sexual Activity: after follow-up appointment Shower/Bathe: keep incision dry take it easy . Current Hospital Diet Patient's current hospital diet: Regular Diet Discharge Diet Recommended Diet: Regular Diet Procedures Procedures Performed: L4-5 hardware removal with revision and reinsertion Pending Studies Studies pending at discharge: no Medical Emergencies . Who to Call and When: Medical Emergencies: If at any time you feel your situation is an emergency, please call 911 immediately. . Non-Emergent Contact Non-Emergency issues call your: Primary Care Provider Call Non-Emergent contact if: you have any medication questions . "Provider Documentation" section prepared by John Godoy. .
[2018-04-22 09:26] VITALS: BP 142/87; PULSE 78; TEMP 36.6; O2SAT 98
--- NOTE | 2018-04-22 11:50 | DISCHARGE SUMMARY ---
ADMITTING DIAGNOSES: Painful hardware, broken hardware, misplaced hardware and continued pain, lumbar spine. DISCHARGE DIAGNOSES: Same. PROCEDURE: Include revision lumbar spine surgery on 20 of April. HOSPITAL COURSE: Que made a nice recovery by day 2. He was discharged home. He was improved, stable. He is getting some return of his motor function, return of his sensation to his foot. I believe he is on the road to recovery. Vital signs stable. No chest pain, shortness of breath, confusion. He will be discharged home today, the 22 of April, improved stable condition. Medication prescriptions will be here at the office. He will pick them up. He has a back brace for support. He is to call if problems should arise and we will see him back in approximately 10 days.
== END 2018-04-22 10:34 | disposition home or self-care (01) | DRG 460 ==
LOC: C.ACU 09:41 → C.3E 16:17 → ENRESERV 16:39
PROVIDERS: ADMIT Orthopaedic Surgery Orthopaedic Surgery of the Spine; ATTEND Orthopaedic Surgery Orthopaedic Surgery of the Spine
PROC: 0QW Lower Bones, Revision (ICD-10-PCS; principal; 2018-04-20 11:45)
PROC: 0SG30J1 Fusion of Lumbosacral Joint with Synthetic Substitute, Posterior Approach, Posterior Column, Open Approach (ICD-10-PCS; principal; 2018-04-20 11:45)
PROC: 0QP004Z Removal of Internal Fixation Device from Lumbar Vertebra, Open Approach (ICD-10-PCS; principal; 2018-04-20 11:45)
PROC: 0SG00J1 Fusion of Lumbar Vertebral Joint with Synthetic Substitute, Posterior Approach, Posterior Column, Open Approach (ICD-10-PCS; principal; 2018-04-20 11:45)
DX: T84.226A Displacement of internal fixation device of vertebrae, initial encounter (principal); Y79.2 Prosthetic and other implants, materials and accessory orthopedic devices associated with adverse incidents; Y92.019 Unspecified place in single-family (private) house as the place of occurrence of the external cause

== ENCOUNTER → 2018-05-19 | Outpatient (CLI) | payer BC, OTHER ==
[~2018-05-19] MED LIST changes: +ATV/1 PO; -CEFAZOLIN 2000MG IV PUSH 15 ML IV SCH; +CEFT1INJ57 IV; +GABA-113 PO; +HYDR2TAB48 PO; -LACTATED RINGER'S 1000ML 1,000 ML IV SCH; -NSS 1000ML IV SCH; -OXYC-106 PO; +OXYC-594 PO; -OXYC-609 PO; -PRED20TA2 PO
[2018-05-19 11:36] LABS: BASO % 0.7 %; BASO ABS # 0.05 K/uL (0-0.2); EOS % 2.8 %; EOS ABS # 0.19 K/uL (0-0.5); HEMOGLOBIN 10.8 g/dL (14.0-18.0); IG# 0.08 K/uL (0.00-0.02); LYMPH % 19.7 %; LYMPH ABS # 1.36 K/uL (1.2-3.4); MEAN CELL VOLUME 92.7 fL (80-100); MEAN CORPUSCULAR HEMOGLOBIN 30.3 pg (25-34); MEAN CORPUSCULAR HGB CONC 32.7 g/dl (32-36); MEAN PLATELET VOLUME 8.2 fL (7.4-10.4); MONO % 7.8 %; MONO ABS # 0.54 K/uL (0.11-0.59); NEUT % 67.8 %; NEUT ABS # 4.67 K/uL (1.4-6.5); PLATELET COUNT 444 K/uL (130-400); RED CELL DISTRIBUTION WIDTH CV 14.1 % (11.5-14.5); RED CELL DISTRIBUTION WIDTH SD 48.3 fL (36.4-46.3); WHITE BLOOD COUNT 6.89 K/uL (4.8-10.8)
[2018-05-19 11:51] LABS: ALBUMIN 2.9 gm/dl (3.4-5.0); ALKALINE PHOSPHATASE 79 U/L (45-117); ALT/SGPT 33 U/L (12-78); AST/SGOT 35 U/L (15-37); BLOOD UREA NITROGEN 7 mg/dl (7-18); CALCIUM 8.5 mg/dl (8.5-10.1); CARBON DIOXIDE 30 mmol/L (21-32); CREATININE 0.81 mg/dl (0.60-1.40); GLUCOSE 93 mg/dl (70-99); POTASSIUM 3.8 mmol/L (3.5-5.1); SODIUM 141 mmol/L (136-145); TOTAL PROTEIN 6.7 gm/dl (6.4-8.2)
--- NOTE | 2018-06-09 10:55 | CODING QUERY MEDICAL NECESSITY ---
Valid Physician Order Needed A valid physician order must be submitted in order to properly bill for the service(s) provided, including date of service(s), valid diagnosis, and physician signature. If these tests are done on a recurring basis the original physican order must be submitted in order to code and bill for the service(s) provided. Please fax us the original, signed physician order so that we may expedite billing to [phone] DOS 05/19/18 * CMP * CBC W/ AUTO DIFF * ERYTHROCYTE SEDIMENTATION RATE Thank you Sofia [facility] Information Management
== END | disposition home or self-care (01) ==
LOC: C.LABSPEC 11:08
PROVIDERS: ATTEND Internal Medicine Infectious Disease
DX: Z01.89 Encounter for other specified special examinations (principal)

== ENCOUNTER → 2018-06-03 | Outpatient (CLI) | payer BC, OTHER ==
[~2018-06-03] MED LIST changes: -CYCL10TA6 PO; -DIAZ-165 PO; -NAPR1TAB9 PO
[2018-06-03 11:07] LABS: HEMATOCRIT 33.3 % (42-52); MEAN CORPUSCULAR HEMOGLOBIN 30.4 pg (25-34); MEAN PLATELET VOLUME 8.8 fL (7.4-10.4); PLATELET COUNT 292 K/uL (130-400); RED CELL DISTRIBUTION WIDTH CV 14.6 % (11.5-14.5); RED CELL DISTRIBUTION WIDTH SD 49.8 fL (36.4-46.3)
[2018-06-03 11:32] LABS: ALBUMIN 3.4 gm/dl (3.4-5.0); ALKALINE PHOSPHATASE 57 U/L (45-117); ALT/SGPT 30 U/L (12-78); AST/SGOT 21 U/L (15-37); BLOOD UREA NITROGEN 9 mg/dl (7-18); CALCIUM 8.3 mg/dl (8.5-10.1); CARBON DIOXIDE 32 mmol/L (21-32); CREATININE 0.62 mg/dl (0.60-1.40); GLUCOSE 81 mg/dl (70-99); SODIUM 140 mmol/L (136-145); TOTAL PROTEIN 6.9 gm/dl (6.4-8.2)
--- NOTE | 2018-07-03 09:05 | CODING QUERY NO DIAGNOSIS ---
1980 Valid Physician Order Needed A valid physician order must be submitted in order to properly bill for the service(s) provided, including date of service(s), valid diagnosis, and physician signature. If these tests are done on a recurring basis the original physican order must be submitted in order to code and bill for the service(s) provided. Please fax us the original, signed physician order so that we may expedite billing to [phone] DOS 06/03/18 *CMP *CBC W/O DIFF *ESR Thank you LEDY Perea, [facility] Health Information Management
== END | disposition home or self-care (01) ==
LOC: C.LABSPEC 09:00
PROVIDERS: ATTEND Internal Medicine Infectious Disease
DX: J18.8 Other pneumonia, unspecified organism (principal)

== ENCOUNTER → 2018-06-09 | Outpatient (CLI) | payer BC, OTHER ==
[2018-06-09 11:55] LABS: HEMATOCRIT 35.8 % (42-52); HEMOGLOBIN 12.1 g/dL (14.0-18.0); MEAN CELL VOLUME 91.1 fL (80-100); MEAN CORPUSCULAR HEMOGLOBIN 30.8 pg (25-34); MEAN CORPUSCULAR HGB CONC 33.8 g/dl (32-36); MEAN PLATELET VOLUME 8.9 fL (7.4-10.4); PLATELET COUNT 255 K/uL (130-400); RED CELL DISTRIBUTION WIDTH SD 46.6 fL (36.4-46.3); WHITE BLOOD COUNT 7.63 K/uL (4.8-10.8)
--- NOTE | 2018-06-11 10:45 | CODING QUERY NO DIAGNOSIS ---
1980 Valid Physician Order Needed A valid physician order must be submitted in order to properly bill for the service(s) provided, including date of service(s), valid diagnosis, and physician signature. If these tests are done on a recurring basis the original physican order must be submitted in order to code and bill for the service(s) provided. Please fax us the original, signed physician order so that we may expedite billing to [phone] DOS 06/09/18 CBC SED RATE CMP Thank you LEDY Perea, [facility] Health Information Management
== END | disposition home or self-care (01) ==
LOC: C.LABSPEC 11:19
PROVIDERS: ATTEND Internal Medicine Infectious Disease
DX: Z01.89 Encounter for other specified special examinations (principal)

== ENCOUNTER → 2018-06-16 | Outpatient (CLI) | payer BC, OTHER ==
[~2018-06-16] MED LIST changes: -HYDR2TAB48 PO
[2018-06-16 10:37] LABS: BASO % 0.7 %; BASO ABS # 0.05 K/uL (0-0.2); EOS % 4.4 %; HEMATOCRIT 37.7 % (42-52); HEMOGLOBIN 12.8 g/dL (14.0-18.0); IG# 0.02 K/uL (0.00-0.02); LYMPH % 21.6 %; LYMPH ABS # 1.47 K/uL (1.2-3.4); MEAN CELL VOLUME 89.5 fL (80-100); MEAN CORPUSCULAR HEMOGLOBIN 30.4 pg (25-34); MONO % 6.5 %; MONO ABS # 0.44 K/uL (0.11-0.59); NEUT % 66.5 %; NEUT ABS # 4.51 K/uL (1.4-6.5); PLATELET COUNT 304 K/uL (130-400); RED CELL DISTRIBUTION WIDTH CV 13.6 % (11.5-14.5); RED CELL DISTRIBUTION WIDTH SD 45.1 fL (36.4-46.3); WHITE BLOOD COUNT 6.79 K/uL (4.8-10.8)
[2018-06-16 10:55] LABS: ALBUMIN 3.9 gm/dl (3.4-5.0); ALKALINE PHOSPHATASE 66 U/L (45-117); ALT/SGPT 23 U/L (12-78); AST/SGOT 19 U/L (15-37); BLOOD UREA NITROGEN 8 mg/dl (7-18); CALCIUM 9.3 mg/dl (8.5-10.1); CARBON DIOXIDE 30 mmol/L (21-32); CREATININE 0.66 mg/dl (0.60-1.40); GLUCOSE 105 mg/dl (70-99); POTASSIUM 3.9 mmol/L (3.5-5.1); SODIUM 139 mmol/L (136-145); TOTAL PROTEIN 7.6 gm/dl (6.4-8.2)
--- NOTE | 2018-07-05 13:05 | CODING QUERY NO DIAGNOSIS ---
Valid Physician Order Needed A valid physician order must be submitted in order to properly bill for the service(s) provided, including date of service(s), valid diagnosis, and physician signature. If these tests are done on a recurring basis the original physican order must be submitted in order to code and bill for the service(s) provided. Please fax us the original, signed physician order so that we may expedite billing to [phone] DOS 06/16/18 * CMP * CBC W/ AUTO DIFF * ERTHROCYTE SEDIMENTATION RATE Thank you Sofia [facility] Information Management
== END | disposition home or self-care (01) ==
LOC: C.LABSPEC 10:15
PROVIDERS: ATTEND Internal Medicine Infectious Disease
DX: Z01.89 Encounter for other specified special examinations (principal)

== ENCOUNTER → 2018-06-25 | Outpatient (CLI) | payer BC, OTHER ==
[~2018-06-25] MED LIST changes: -CEFT1INJ57 IV
[2018-06-25 11:59] LABS: HEMATOCRIT 36.3 % (42-52); HEMOGLOBIN 12.4 g/dL (14.0-18.0); MEAN CELL VOLUME 88.5 fL (80-100); MEAN CORPUSCULAR HEMOGLOBIN 30.2 pg (25-34); MEAN CORPUSCULAR HGB CONC 34.2 g/dl (32-36); MEAN PLATELET VOLUME 9.3 fL (7.4-10.4); PLATELET COUNT 288 K/uL (130-400); RED CELL DISTRIBUTION WIDTH CV 13.2 % (11.5-14.5); RED CELL DISTRIBUTION WIDTH SD 42.9 fL (36.4-46.3); WHITE BLOOD COUNT 5.47 K/uL (4.8-10.8)
[2018-06-25 12:01] LABS: BLOOD UREA NITROGEN 8 mg/dl (7-18); CREATININE 0.73 mg/dl (0.60-1.40); GLUCOSE 104 mg/dl (70-99)
[2018-06-25 12:02] LABS: ALBUMIN 3.9 gm/dl (3.4-5.0); ALKALINE PHOSPHATASE 64 U/L (45-117); ALT/SGPT 28 U/L (12-78); AST/SGOT 22 U/L (15-37); CALCIUM 9.1 mg/dl (8.5-10.1); CARBON DIOXIDE 30 mmol/L (21-32); POTASSIUM 3.6 mmol/L (3.5-5.1); SODIUM 139 mmol/L (136-145); TOTAL PROTEIN 7.4 gm/dl (6.4-8.2)
== END | disposition home or self-care (01) ==
LOC: C.LABSPEC 10:34
PROVIDERS: ATTEND Internal Medicine Infectious Disease
DX: Z79.2 Long term (current) use of antibiotics (principal)

== ENCOUNTER → 2018-07-03 | Outpatient (CLI) | payer BC, OTHER ==
[2018-07-03 11:07] LABS: HEMATOCRIT 36.8 % (42-52); HEMOGLOBIN 12.4 g/dL (14.0-18.0); MEAN CELL VOLUME 88.9 fL (80-100); MEAN CORPUSCULAR HGB CONC 33.7 g/dl (32-36); MEAN PLATELET VOLUME 9.4 fL (7.4-10.4); PLATELET COUNT 273 K/uL (130-400); RED CELL DISTRIBUTION WIDTH CV 13.1 % (11.5-14.5); RED CELL DISTRIBUTION WIDTH SD 42.7 fL (36.4-46.3); WHITE BLOOD COUNT 7.64 K/uL (4.8-10.8)
[2018-07-03 11:22] LABS: ALBUMIN 3.6 gm/dl (3.4-5.0); ALKALINE PHOSPHATASE 68 U/L (45-117); ALT/SGPT 21 U/L (12-78); AST/SGOT 16 U/L (15-37); BLOOD UREA NITROGEN 13 mg/dl (7-18); CALCIUM 8.4 mg/dl (8.5-10.1); CARBON DIOXIDE 28 mmol/L (21-32); CREATININE 0.71 mg/dl (0.60-1.40); GLUCOSE 97 mg/dl (70-99); POTASSIUM 3.9 mmol/L (3.5-5.1); SODIUM 138 mmol/L (136-145); TOTAL PROTEIN 7.2 gm/dl (6.4-8.2)
== END | disposition home or self-care (01) ==
LOC: C.LABSPEC 10:37
PROVIDERS: ATTEND Internal Medicine Infectious Disease
DX: Z51.81 Encounter for therapeutic drug level monitoring (principal); Z79.01 Long term (current) use of anticoagulants

== ENCOUNTER → 2018-07-20 | Outpatient (CLI) | payer BC, OTHER ==
--- NOTE | 2018-07-20 10:19 | DIAGNOSTIC IMAGING REPORT ---
ULTRASOUND KIDNEYS AND BLADDER CLINICAL HISTORY: Nephrolithiasis. COMPARISON STUDY: Abdominal CT dated 03/21/2015. Renal ultrasound dated 03/28/2015. TECHNIQUE: Real-time, grayscale, and color flow sonography of the kidneys and bladder is performed. Images are reviewed in the transverse and longitudinal planes. FINDINGS: Kidneys: The kidneys are normal in size and echotexture. The right kidney measures 11.1 cm in length and the left kidney measures 11.4 cm in length. There is no hydronephrosis. No shadowing renal calculi are identified. There is no sonographic evidence of contour deforming renal mass lesion. No perinephric fluid is identified. Bladder: The bladder is normal in appearance. Bilateral ureteral jets were seen. IMPRESSION: Unremarkable sonographic assessment of the kidneys and bladder. Electronically signed by: Derrick Rich M.D. 07/20/2018 10:17 AM Dictated Date/Time: 07/20/2018 10:16 AM
== END | disposition home or self-care (01) ==
LOC: C.ULTR 09:32
PROVIDERS: ATTEND Urology
DX: N20.0 Calculus of kidney (principal); N35.9 Urethral stricture, unspecified